=== PATIENT | male | born 2000 | race Caucasian/White ===

== ENCOUNTER → 2023-06-15 | Outpatient (CLI) | payer BC ==
--- NOTE | 2023-06-16 13:53 | CT ---
EXAMINATION TYPE: CT sinus wo con CT DLP: 544.7 mGycm, Automated exposure control for dose reduction was used. DATE OF EXAM: 06/15/2023 7:23 AM COMPARISON: Brain 12/26/2013.. CLINICAL INDICATION:Male, 22 years old with history of J32.0 CHRONIC MAXILLARY SINUSITIS; , CHRONIC M AXILLARY SINUSITIS TECHNIQUE: Multiple thin axial images were obtained through the paranasal sinuses without the use of IV contrast. Additional coronal and sagittal reformatted images were submitted for evaluation. Contrast used: none Oral contrast used: none FINDINGS: Frontal sinuses: Normally developed with mucosal thickening throughout the frontal sinuses.. Frontal Recess: Partially obstructed due to mucosal thickening. Maxillary Sinuses: Normally developed, there is large retention cyst in the right maxillary sinus coco suring up to 31 x 44 mm and smaller retention cysts in the left maxillary sinus measuring up to 18 mm . Maxillary Infundibula([facility]): Obstructed bilaterally due to mucosal thickening/retention cysts, No Briggs er cells identified. Ethmoid sinuses: Normally developed with mucosal thickening throughout bilateral anterior and posteri or ethmoid air cells.. Ethmoidal notch: Unprotected bilateral anterior ethmoidal arteries. Sphenoid sinuses: Normally developed with mild mucosal thickening.. There is sellar sphenoid sinus pn eumatization without evidence of dehiscence. No dehiscence of carotid canal. No evidence of optic ne rve dehiscence within the sphenoid sinus. No evidence of Onodi cells. Sphenoethmoidal recesses: Part ially opacified from mucosal thickening. Nasal septum: Within normal limits.. Nasal Turbinates: Within normal limits. Mastoid air cells & middle ears: The air cells are clear. The middle ears are grossly unremarkable. Modified Soft tissues & Brain: Partially seen without gross abnormality. Globes are intact. Other: Cribriform plate demonstrates symmetric Keros classification type 3 cribriform plate. No evidence of bony dehiscence of skull base. Lamina papyracea is intact without evidence of remote orbital fracture or orbital prolapse into the e thmoid sinus. IMPRESSION: 1. Moderate paranasal sinus most pronounced in the maxillary sinuses.. 2. The ostiomeatal units, frontonasal and sphenoethmoidal recesses are overall opacified/obstructed b ilaterally.
== END | disposition home or self-care (01) ==
LOC: RADCTMAIN 06:36
PROVIDERS: ATTEND Otolaryngology
DX: J32.0 Chronic maxillary sinusitis (principal); J34.89 Other specified disorders of nose and nasal sinuses
CPT/HCPCS: 70486

== ENCOUNTER 2023-10-10 05:39 | Day surgery (SDC) | payer BC ==
[2023-10-08 10:29] VITALS: BMI 28.1
[2023-10-10] MEDS: OXYMETAZOLINE 0.05% NASL SPRAY 1 SPRAY BOTTLE EA NOSTRIL PRN (06:20)
[2023-10-10] MEDS: IV FLUID CONTINUATION 1,000 ML IV ONE ×3 (06:24→11:24)
[2023-10-10] MEDS: LACTATED RINGERS 1,000 ML IV SCH (06:32)
[2023-10-10] MEDS: FAMOTIDINE 20 MG/2 ML VIAL IV PRN (06:35)
[2023-10-10] MEDS: DEXAMETHASONE SOD PHOSPHATE 4 MG/ML 1 ML VIAL IV ONE (06:35)
[2023-10-10] MEDS: ONDANSETRON 4 MG/2 ML VIAL IVP ONE (06:35)
[2023-10-10] MEDS ORDERED: DEXAMETHASONE SOD PHOSPHATE 10 MG/ML 1 ML VIAL ONE (06:54)
[2023-10-10] MEDS ORDERED: fentaNYL (PF) 50 MCG/ML 2 ML AMP ONE (06:54)
[2023-10-10] MEDS ORDERED: MIDAZOLAM 2 MG/2 ML VIAL ONE (06:54)
[2023-10-10] MEDS ORDERED: LIDOCAINE 1% INJ 10MG/ML (20 ML MDV) ONE (06:54)
[2023-10-10] MEDS ORDERED: PROPOFOL 10 MG/ML 20 ML VIAL IV ONE (06:54)
[2023-10-10] MEDS ORDERED: SUCCINYLCHOLINE CHLORIDE 200 MG/10 ML VIAL IV ONE (06:54)
[2023-10-10] MEDS: LIDOCAINE 1%-EPI 1:100,000 20 ML VIAL SUBMUCOSAL ONE ×2 (07:11)
[2023-10-10] MEDS: BACITRACIN ZINC 500 UNIT/GM OINT 28.4 GM TUBE TOPICAL ONE ×2 (07:16→08:02)
--- NOTE | 2023-10-10 08:09 | P.OP ---
Date of Procedure: 10/10/23 Preoperative Diagnosis: deviated nasal septum Inferior turbinate hypertrophy Chronic sinusitis Postoperative Diagnosis: same Procedure(s) Performed: septoplasty Outfractured and submucous resection inferior turbinates Bilateral endoscopic sinus surgery including bilateral maxillary antrostomy with removal of tissue from exercise sinuses bilateral anterior and posterior ethmoidectomy bilateral frontal sinusotomy with exploration and bilateral sphenoidotomy with exploration and removal of tissue from the bilateral sphenoid sinuses Anesthesia: GIGI Surgeon: Greg Waters Estimated Blood Loss (ml): 10 Pathology: other (nasal septal bone and cartilage and sinus contents) Condition: stable Disposition: PACU Indications for Procedure: this 23-year-old white male with difficulties with chronic nasal airway obstruction congestion and recurrent/chronic sinusitis with physical exam findings consistent with the above as well as computed tomography scan which showed evidence of chronic sinusitis diffusely Operative Findings: nasal septum deviated to the left anteriorly to the right posteriorly, inferior turbinate hypertrophy bilateral, obstruction of the ostomy of complexes and maxillary ostia bilaterally with mucosal thickening in the maxillary sinuses, mucosal thickening throughout the ethmoid sinuses frontal and sphenoid sinuses Description of Procedure: The patient was brought into the operative suite and placed in a supine position. The patient underwent induction of general anesthesia with oral endotracheal intubation without difficulty. The patient was prepped and draped in the usual aseptic fashion with the orbits in the operating field for monitoring to the case and the computed tomography scan was on the computer screen for review throughout the case. 1% lidocaine with 1 :100,000 epinephrine was infused submucosally into both sides of the nasal septum as well as the lateral nasal wall and anterior tips of the middle turbinates. While this was taking vasoconstrictive effect the inferior turbinates were infractured with Upson elevator and partial submucous resection of the inferior turbinates was performed with a portion of the submucosal soft tissue and the inferior turbinate bone removed with Coblation device. The inferior turbinates were then outfractured with the Upson elevator. A left hemitransfixion incision was then made with the mucoperichondrial and mucoperiosteal flap on the left elevated. The bony cartilaginous junction was disarticulated and the mucoperiosteal flap on the right was elevated. Bony nasal septal deformities were removed with Pranav forceps and an inferior cartilaginous strip was removed leaving a full 1.5 cm caudal strut. Checking intranasally this corrected the nasoseptal deformities and the hemitransfixion incision was closed with a running 4-0 chromic suture. Full 0 endoscopic examination is performed bilaterally. Beginning on the left, the middle turbinate was medialized. The maxillary ostium was located with a ballpoint probe and an infundibulotomy was performed followed by uncinectomy. The maxillary antrostomy was enlarged at the expense of the anterior and posterior fontanelle taking care anteriorly not to injure the lacrimal bone. The maxillary sinus was evaluated with 30 and 70 endoscope .[Abnormal appearing tissue was removed from the maxillary sinus]. Anterior and posterior ethmoidectomy were then performed from anterior to posterior to the level of the skull base. The roof of the anterior ethmoid air cells were then cleaned from posterior to anterior using up-biting Blakesley forceps. frontal sinusotomy was performed with 30 and 70 endoscope and giraffe forceps. The frontal sinus was then explored with 30 endoscope.[Abnormal tissue was removed from the frontal sinus]. sphenoidotomy was performed utilizing 0 endoscope straight suction and straight Blakesley forceps. The sphenoid sinus was then explored with 0 endoscope.[Abnormal tissue was removed from the sphenoid sinus]. Attention was then turned to the right where the procedures were followed as they had been on the leftincluding medialization middle turbinate infundibulotomy uncinectomy and maxillary antrostomy with removal of tissue from maxillary sinus anterior posterior ethmoidectomy frontal sinusotomy with exploration and removal of tissue and sphenoidotomy with exploration and removal of tissue. [Nasopore nasal dressing was placed in the middle meatus bilaterally under direct visualization]. Bilateral Logan airway splints coated with bacitracin ointment were placed and sutured transseptally with a 4-0 nylon suture. The pa tient was suctioned in oral gastric fashion and was allowed to emerge from general anesthesia having tolerated procedure well and was extubated in the operating suite and transferred to the postoperative recovery area in satisfactory condition.
[2023-10-10] MEDS: HYDROmorphone 0.5 MG/0.5 ML SYRINGE IVP PRN (08:26)
[2023-10-10 08:35] VITALS: TEMP 97.9
[2023-10-10] MEDS: fentaNYL (PF) 50 MCG/ML 2 ML AMP IVP ONE (09:19)
[2023-10-10] MEDS: droPERidol 5 MG/2 ML VIAL IVP ONE (10:46)
[2023-10-10] MEDS: HYDROcodone/APAP 7.5-325MG 1 EACH TAB PO ONE (11:04)
[2023-10-10 12:58] VITALS: BP 145/83; PULSE 52; RESP 18
== END 2023-10-10 12:52 | disposition home or self-care (01) ==
LOC: OR 05:39
PROVIDERS: ATTEND Otolaryngology
DX: J32.9 Chronic sinusitis, unspecified (principal); J34.2 Deviated nasal septum; J34.3 Hypertrophy of nasal turbinates; K21.9 Gastro-esophageal reflux disease without esophagitis; Z79.899 Other long term (current) drug therapy
CPT/HCPCS: 88305; 88300; 30520; 31259; 31267; 31276; J2250; J0330; J1100 ×2; J0690; J2405; J2001; J3010; J3490; J2704; J1170; J1790

== ENCOUNTER → 2023-10-26 | Outpatient (CLI) | payer BC ==
[2023-10-26 18:44] LABS: Basophils # (A) 0.04 X 10*3/uL (0.00-0.10); Basophils % (A) 0.6 %; Eosinophils # (A) 0.11 X 10*3/uL (0.04-0.35); Eosinophils % (A) 1.7 %; HCT 47.5 % (39.6-50.0); HGB 16.4 g/dL (13.0-17.0); Lymphocytes # (A) 1.92 X 10*3/uL (0.90-5.00); MCHC 34.5 g/dL (32.0-37.0); MCV 86.8 FL (80.0-97.0); Mean Platelet Volume 10.5 FL (9.5-12.2); Monocytes % (A) 9.4 %; NRBC Per 100 WBC 0 X 10*3/uL (0.00-0.01); Neutrophils # (A) 3.71 X 10*3/uL (1.80-7.70); Platelet Count 220 X 10*3/uL (140-440); RBC 5.47 X 10*6/uL (4.40-5.60); RDW 12.2 % (11.5-14.5)
[2023-10-26 19:02] LABS: ALT 29 U/L (10-49); AST 27 U/L (14-35); Albumin/Globulin Ratio 2.17 Ratio (1.60-3.17); Alkaline Phosphatase 115 U/L (41-126); BUN/Creat Ratio 15.73 Ratio (12.00-20.00); Blood Urea Nitrogen 17.3 mg/dL (9.0-27.0); Calcium 9.7 mg/dL (8.7-10.3); Carbon Dioxide 23.6 mmol/L (21.6-31.8); Chloride 105 mmol/L (96-109); Chol/HDL Ratio 4.22 Ratio; Globulin 2.3 g/dL (1.6-3.3); Glucose 88 mg/dL (70-110); LDL Cholesterol,Calculated 106.4 mg/dL (0.0-131.0); Potassium 3.9 mmol/L (3.5-5.5); Sodium 143 mmol/L (135-145); T4, Free (Free Thyroxine) 1.17 ng/dL (0.80-1.80); Total Bilirubin 0.5 mg/dL (0.3-1.2); Total Protein 7.3 g/dL (6.2-8.2)
[2023-10-26 20:31] LABS: HIV 2 AB Non-Reactive (Non-Reactive); HIV AB P24 Non-Reactive (Non-Reactive); HIV P24 AG Non-Reactive (Non-Reactive)
== END | disposition home or self-care (01) ==
LOC: LABWHC1 12:31
PROVIDERS: ATTEND Internal Medicine Geriatric Medicine
DX: I10 Essential (primary) hypertension (principal); E78.5 Hyperlipidemia, unspecified; E03.9 Hypothyroidism, unspecified; R73.9 Hyperglycemia, unspecified; R61 Generalized hyperhidrosis
CPT/HCPCS: 36415; 80053; 80061; 83036; 84439; 84443; 85025; 87390

== ENCOUNTER → 2024-03-25 | Outpatient (CLI) | payer BC ==
--- NOTE | 2024-03-25 09:42 | CT ---
EXAMINATION TYPE: CT sinus wo con DATE OF EXAM: 03/25/2024 8:50 AM COMPARISON: 06/15/2023.. CLINICAL INDICATION: Male, 23 years old with history of J32.0 CHRONIC MAXILLARY SINUSITIS; , Chronic maxillary sinusitis prior sx TECHNIQUE: Multiple thin axial images were obtained through the paranasal sinuses without the use of IV contrast. Additional coronal and sagittal reformatted images were submitted for evaluation. Contrast used: none Oral contrast used: none CT DLP: 525.50 mGycm, Automated exposure control for dose reduction was used. FINDINGS: Frontal sinuses: Normally developed and aerated. Frontal Recess: Clear Maxillary Sinuses: Normally developed with retention cysts bilaterally. The dominant retention cysts on the right has decreased in size compared to prior.. Maxillary Infundibula([facility]): Postsurgical changes with an sestamibi bilaterally. No Payton cells ident ified. Ethmoid sinuses: Normally developed and aerated. Ethmoidal notch: Unprotected bilateral anterior ethm oidal arteries. Sphenoid sinuses: Normally developed and aerated. There is sellar sphenoid sinus pneumatization witho ut evidence of dehiscence. No dehiscence of carotid canal. No evidence of optic nerve dehiscence wit hin the sphenoid sinus. Sphenoethmoidal recesses: Clear. Nasal septum: Mildly deviated superiorly anteriorly. Mild mucosal thickening. Nasal Turbinates: Mild mucosal thickening of the inferior turbinates right greater than left. Mastoid air cells & middle ears: The air cells are clear. The middle ears are grossly unremarkable. Modified Soft tissues & Brain: Partially seen without gross abnormality. Globes are intact. Other: Cribriform plate demonstrates symmetric Keros classification type 3 cribriform plate. No evidence of bony dehiscence of skull base. Lamina papyracea is intact without evidence of remote orbital fracture or orbital prolapse into the e thmoid sinus. IMPRESSION: 1. Postsurgical changes with Mild paranasal sinus disease worse in the maxillary sinuses. 2. The ostiomeatal units, frontonasal and sphenoethmoidal recesses are clear. [facility], , 03/25/2024 9:40 AM
== END | disposition home or self-care (01) ==
LOC: RADCTMAIN 08:33
PROVIDERS: ATTEND Otolaryngology
DX: J32.0 Chronic maxillary sinusitis (principal)
CPT/HCPCS: 70486